=== PATIENT | male | born 1970 | race Caucasian/White ===

== ENCOUNTER → 2020-09-05 | Outpatient (CLI) | payer BC ==
[~2020-09-05] MED LIST: BACTRIM DS TAB1 EACH PO; BACTROBAN NASAL1 G1 TOP
== END ==
LOC: KOH-I 15:50
DX: R06.02 Shortness of breath (principal); M54.2 Cervicalgia; M54.5 Low back pain; M47.812 Spondylosis without myelopathy or radiculopathy, cervical region; M47.816 Spondylosis without myelopathy or radiculopathy, lumbar region
CPT/HCPCS: 71046; 72050; 72110

== ENCOUNTER → 2021-05-19 | Outpatient (CLI) | payer BC | LOC: KOH-I 10:00 | DX: M54.50 Low back pain, unspecified (principal); E88.2 Lipomatosis, not elsewhere classified; Q76.49 Other congenital malformations of spine, not associated with scoliosis; M48.061 Spinal stenosis, lumbar region without neurogenic claudication; M51.86 Other intervertebral disc disorders, lumbar region | CPT/HCPCS: 72148 ==